=== PATIENT | female | born 1980 | race Caucasian/White ===

== ENCOUNTER 2018-04-21 14:11 | Outpatient (CLI) | payer MEDICAID, SELFPAY ==
[2018-04-23 21:43] LABS: Progesterone 2.6 ng/ml
== END 2018-04-21 14:31 ==
PROVIDERS: PCP Nurse Practitioner Family; Visit Provider Naturopath
DX: N92.1 Excessive and frequent menstruation with irregular cycle (principal)
CPT/HCPCS: 36415; 84144

== ENCOUNTER 2019-12-31 12:41 | Outpatient (REF) | payer MEDICAID, SELFPAY ==
--- NOTE | 2019-12-31 11:45 | PAPFT_PTH ---
PATIENT: Lily Mcmanus LOC: [facility] U#:[id number] AGE/SX: 39/F ROOM: RE12/31/[address]: Sandrita Thompson : 1980 BED: DIS: 12/31/2019 SPEC #: [id number] RECD: 01/01/20 12:50 STATUS: WON RENori #: [id number] OLGA: 12/31/19 11:[address]: Sandrita Zarate DEPT: [facility] Cytology RECD BY: Elke Jimenez ENTERED: 01/01/20 12:51 SP TYPE: PAPFT OTHR DR: Corinne Roberto Tissues: 1 - CX/ENDOCX FOR PAP SMEARS Procedures: PAP THIN PREP/UVM Screening HPV DNA PROBE Comments: [id number]
[2019-12-31 21:28] LABS: Hemoglobin A1C 4.9 % (3.8-5.6)
[2019-12-31 21:32] LABS: Calculated LDL 80 mg/dL (<100); Cholesterol 165 mg/dL (<200); HDL Cholesterol 68 mg/dL (40-60); Triglyceride 87 mg/dL (<150)
== END 2019-12-31 13:01 ==
LOC: NCHCN 12:41
PROVIDERS: PCP Nurse Practitioner Family; Visit Provider Nurse Practitioner Family
DX: Z13.220 Encounter for screening for lipoid disorders (principal); Z13.1 Encounter for screening for diabetes mellitus; R30.0 Dysuria; Z12.4 Encounter for screening for malignant neoplasm of cervix; Z11.51 Encounter for screening for human papillomavirus (HPV)
CPT/HCPCS: 80061; 88142; 83036; 87086; 87624

== ENCOUNTER 2020-02-08 10:16 | Outpatient (CLI) | payer MEDICAID, SELFPAY ==
[2020-02-10 13:08] LABS: Patient Race White; SARS-CoV-2 RNA Undetected (Undetected); SARS-CoV-2 Specimen Source Nasopharynx
== END 2020-02-08 10:36 ==
PROVIDERS: PCP Nurse Practitioner Family; Visit Provider Nurse Practitioner Family
DX: Z11.59 Encounter for screening for other viral diseases (principal)
CPT/HCPCS: U0003

== ENCOUNTER 2020-04-18 21:29 | Outpatient (REF) | payer MEDICAID, SELFPAY ==
[2020-04-22 22:16] LABS: COVID-19 RT-PCR Result NEGATIVE (Negative)
== END 2020-04-18 21:49 ==
LOC: NCHCN 21:29
PROVIDERS: PCP Nurse Practitioner Family; Visit Provider Nurse Practitioner Family
DX: Z20.828 Contact with and (suspected) exposure to other viral communicable diseases (principal); R53.83 Other fatigue
CPT/HCPCS: U0003

== ENCOUNTER 2020-12-03 02:25 | Outpatient (CLI) | payer MEDICAID, SELFPAY ==
--- NOTE | 2020-12-03 | DI.US_ITS ---
Exam(s) US BREAST LT COMPLETE MG MAMMO DIAGNOSTIC BI EXAM: MG MAMMO DIAGNOSTIC BI PLUS COMPLETE LEFT BREAST ULTRASOUND CLINICAL HISTORY: LT BREAST PAIN, CYSTIC BREASTS,N64.4. TECHNIQUE: BOTH CC AND MLO VIEWS OF BOTH BREASTS WERE PERFORMED. Obtained with 3D Tomosynthesistechn ique and utilizing computer aided detection (CAD). FOLLOWING THIS MAMMOGRAM COMPLETE LEFT BREAST ULTRASOUND WAS PERFORMED INCLUDING ALL 4 QUADRANTS W ELL THE RETROAREOLAR REGION AND LEFT AXILLA COMPARISON: NONE. This is a baseline diagnostic mammogram on this 40-year-old patient who feels left breast pain on and off, mostly at approximately 6 o'clock position. She does not feel a lump and rodrigues s not have nipple discharge. FINDINGS: MAMMOGRAM: Fibroglandular tissue is moderately dense, this decreasing the sensitivity mammogram for finding in u nderlying lesions. There are no obvious spiculated masses nor malignant-appearing microcalcification groups in either br east. There is no significant architectural distortion or skin thickening-traction. LEFT BREAST ULTRASOUND (COMPLETE): There are no focal ultrasound findings in all 4 quadrants nor in the retroareolar region. Scanning of the area of concern at 6 o'clock position in multiple planes and not reveal any significant findings . Scanning of the ipsilateral left axilla is negative for significant adenopathy. IMPRESSION: 1. No radiographic evidence of malignancy in either breast. 2. Negative complete left breast ultrasound Appropriate follow-up is repeat breast imaging in a few months time if her pain persists, earlier if clinically indicated. She presently denies a lump. The patient was informed of the findings and follow-up recommendations by myself prior to leaving the department today. BI-RADS Category 2 - Benign Findings Breast Density - Category C - Heterogeneously dense Breast density Category C or D implies that the patient has dense breast tissue. Dense breast tissue can make it harder to find cancer on a mammogram. Dense breast tissue is also associated with an incr eased risk of breast cancer. This information about the result of the mammogram report was provided to the patient to raise their awareness. Use this report when you speak with the patient about their risks for breast cancer, which includes their family history. At that time, you may recommend additional screening tests (Ultrasoun d or MRI) as these tests may add significant information. A negative radiographic report should not delay biopsy if a dominant or clinically suspicious mass is present. Up to ten percent of cancers are not identified on mammography. A negative report may reinforce clinical impression. Adenosis and dense breasts may obscure an underlying neoplasm. False positive reports average 6 to 10%. Patient will receive a letter notifying them of these results.
== END 2020-12-03 02:45 ==
PROVIDERS: PCP Nurse Practitioner Family; Visit Provider Nurse Practitioner Family
DX: N60.12 Diffuse cystic mastopathy of left breast (principal); R92.8 Other abnormal and inconclusive findings on diagnostic imaging of breast
CPT/HCPCS: 76642; 77062; 77066; G0279

== ENCOUNTER 2022-01-08 21:38 | Outpatient (REF) | payer MEDICAID, SELFPAY | END 2022-01-08 21:39 | disposition home or self-care (01) | LOC: NCHCN 21:38 | PROVIDERS: PCP Nurse Practitioner Family; Visit Provider Family Medicine | DX: R39.89 Other symptoms and signs involving the genitourinary system (principal); N89.8 Other specified noninflammatory disorders of vagina; L29.2 Pruritus vulvae | CPT/HCPCS: 87086; 87480; 87510; 87660 ==

== ENCOUNTER 2023-06-21 17:37 | Emergency (ER) | payer MEDICAID, SELFPAY ==
[2023-06-21 17:39] VITALS: BP 170/85; PULSE 88; RESP 18; TEMP 36.9; O2SAT 100
--- NOTE | 2023-06-21 17:49 | ED.GENADUL_ITS ---
HPI General Date/Time Provider Initiated Documentation: 06/21/23 17:49 . HPI Narrative: 42 year-old female presents to ED today by POV/ambulating with a chief complaint of lightning bolt scotoma in L eye for the past day- did injure this eye by poking it while removing contacts two days ago. Quality described as pain with leftward gaze in OS, no radiation to gross blurred vision. Severity is described as mild. Palliating factors include nothing specific attempted. Provoking factors include nothing specific. Events leading up to the incident/Associated Symptoms: Patient endorses FHx of glaucoma. Patient not anticoagulated. Related Data Home Medications Medication Instructions Recorded Confirmed dextroamphetamine-amphetamine 15 15 mg PO DAILY 11/04/22 06/21/23 mg tablet (Adderall) sertraline 25 mg tablet 25 mg PO DAILY 11/04/22 06/21/23 hydroxyzine HCl 25 mg tablet 25 mg PO BID 06/21/23 06/21/23 Allergies Allergy/AdvReac Type Severity Reaction Status Date / Time Penicillins Allergy Intermediate Hives Verified 06/21/23 17:46 Sulfa (Sulfonamide Allergy Intermediate Hives Verified 06/21/23 17:46 Antibiotics) General Stated Complaint: EyeProblem GRISEL: 3 Review of Systems All systems reviewed & are unremarkable except as noted in HPI and below Exam Narrative Exam Narrative: GENERAL APPEARANCE: Well-nourished, non-toxic, awake and alert, atraumatic, no acute distress. SKIN: Warm, pink, dry, intact, without rashes/lesions/ulcerations. HEAD: Normocephalic, atraumatic, normal hair distribution for gender/age. EYES: Pupils PERRLA, EOMs intact without nystagmus, pain with leftward gaze, normal conjunctiva, no exudates on lids/lashes, no hyphema Visual acuity: OD: 20/25, OS: 20/30, Bilat: 20/25 IOP OS: 16.5 Fluorescein exam shows small central punctate corneal abrasion OS Fundus not well visualized ENT: Nares patent, no circumoral cyanosis, no facial swelling NECK: Supple, trachea midline, painless cervical ROM. LUNGS/CHEST: Non-labored respirations, normal A/P diameter, symmetrical expansion, no chest wall deformity HEART (CV/PV): No peripheral edema, no JVD. ABDOMEN: Soft, non-distended, no guarding, no tenderness. MSK: Normal ROM, no swelling/deformity to bilateral UEs or LEs, moving all extremities without weakness, no cyanosis, spine midline without tenderness, normal curvature. NEURO: Mental Status AAOx4 - alert to person, place, time, events No facial droop, no forehead involvement. Motor: No focal weakness - strength 5/5 in bilateral UEs and LEs, proximal and distal, symmetric. Sensory: sensation intact to light touch globally. Gait normal: patient ambulated without ataxia into ED room. PSYCH: euthymic, cooperative, pleasant, appropriate speech Course Vital Signs Vital signs: Vital Signs Temperature 36.9 C 06/21/23 17:39 Pulse 88 06/21/23 17:39 Respiratory Rate 18 06/21/23 17:39 Blood Pressure 170/85 H 06/21/23 17:39 Pulse Oximetry 100 06/21/23 17:39 Temperature 36.9 C 06/21/23 17:39 Temperature Source Skin 06/21/23 17:39 Pulse 88 06/21/23 17:39 Respiratory Rate 18 06/21/23 17:39 Respiratory Effort Normal 06/21/23 17:45 Blood Pressure 170/85 H 06/21/23 17:39 Blood Pressure Position Sitting 06/21/23 17:39 Pulse Oximetry 100 06/21/23 17:39 Oxygen Delivery Method Room Air 06/21/23 17:39 Oxygen Flow Rate 0 06/21/23 17:39 Medical Decision Making This dictation utilizes [id number] dictation software and may contain unedited grammatical errors. 42 y/o F presents to ED today with a chief complaint of injured her eye 2 days ago manipulating contact lens, now having a scotoma, history of occular migraines but feels different. No severe eye pain or discharge, mild pain with leftward gaze. Patients' medical history: noncontributory. Family and social history: FHx of glaucoma, otherwise noncontributory. Pertinent exam findings / vital signs include EYES: Pupils PERRLA, EOMs intact without nystagmus, pain with leftward gaze, normal conjunctiva, no exudates on lids/lashes, no hyphema Visual acuity: OD: 20/25, OS: 20/30, Bilat: 20/25 IOP OS: 16.5 Fluorescein exam shows small central punctate corneal abrasion OS Fundus not well visualized. Differential / pathologies of concern include vitreous hemorrhage, retinal detachment, acute angle glaucoma, corneal abrasion, unlikely CRAO or CRVO. Diagnostic studies of: -Funduscopic exam, Rk-Pen exam, see above. Interventions of: -Ordered erythromycin for the patient further minor corneal abrasion, they left without discharge paperwork after I discussed my consult with [facility] with them. -Consulted with Piero Terry of [facility] Ophtho. ED Course/Assessment/Plan: 42-year-old female presents with a scotoma of the lightening bolts of her left eye, she did poke her eye significantly 2 days ago manipulating her contact lens, there is a punctate corneal abrasion of the left eye, her IOP is normal, v isual acuity intact, she has mild pain with leftward gaze in the left eye only. I did discuss with [facility] ophthalmology after performing informal ultrasound and finding no retinal detachment or significant vitreous hemorrhage, they state that she needs a dilated eye exam which she has arranged and should be eye care tomorrow, [facility] would also be happy to see the patient. I counseled the patient on the punctate corneal abrasion, she chose to leave without discharge paperwork or the erythromycin ointment I was going to provide but she did verbalize understanding of discharge and where and when to return for any acute emergent exacerbation of this problem. Findings not consistent with retinal detachment, CRAO, CRVO, acute angle glaucoma. Disposition of corneal abrasion, scotoma. Patient verbalized understanding of the plan and return to ED criteria and engaged in shared decision making. Medical Records Medical records reviewed: Yes I reviewed the patient's medical records. Quality:[facility] Health Related Social Needs: No Data to Display [facility] All Active Problems (Updated 06/21/23 @ 18:43 by ML Tran) Scotoma (Acute) Corneal abrasion (Acute) ADHD (Acute) PMDD (premenstrual dysphoric disorder) (Acute) Family History Paternal Grandmother Cancer breast Social History Smoking/Tobacco Use Status: Never Smoking risk assessment performed?: Yes Alcohol Intake: never Drug use: Occasionally Substance use type: marijuana Do you feel safe at home: Yes Do you feel safe in your relationship?: Yes History History 2 Para 2 Hx # Term Pregnancies 2 Multiple births Hx # Pregnancies Ectopic pregnancies AB induced Hx Number of Living Children 2 AB spontaneous Discharge Plan Disposition Patient Disposition: Home Condition: Stable Discharge Details Clinical Impression: Corneal abrasion, Scotoma Primary Care Provider: Corinne Roberto ED Provider: Riley Terry Home Meds and New Rx's Prescriptions: Continued dextroamphetamine-amphetamine [Adderall] 15 mg tablet 15 mg PO DAILY sertraline 25 mg tablet 25 mg PO DAILY hydroxyzine HCl 25 mg tablet 25 mg PO BID Patient Comments: TAKE ONE TABLET BY MOUTH TWICE A DAY Discharge Instructions Instructions: Erythromycin (Into the eye), Corneal Abrasion (ED), Visual Floaters (ED) Additional Instructions: You were seen in the emergency department for the visual floaters or lightening bolt scotoma in your left eye, this may be due to the minor trauma 2 days ago while manipulating her contact lens. There was a tiny corneal abrasion in the center of your left cornea, your intraocular pressure is normal, I did not see any retinal detachment or severe vitreous hemorrhage on ultrasound exam of your left eye. It is possible you have some minor vitreous hemorrhage ongoing that is causing your symptoms. I spoke with [facility] ophthalmology and they recommended dilated eye exam which you can have performed at your optometry appointment tomorrow, they would be happy to see you at the ophthalmology clinic at [facility] as well. Please present to a hospital with ophthalmology immediately if you experience any severe increase in eye pain or sudden loss of vision overnight. Use the provided erythromycin ointment 4 times per day for 5 days for your minor corneal abrasion. Referrals: [facility] [Outside]
[2023-06-21] MEDS: Tetracaine 0.5% 4 ML BTL (18:00)
[2023-06-21] MEDS: Fluorescein STRIPS 100/BOX 1 MG (18:00)
--- NOTE | 2023-06-21 19:06 | NUR.NOTE ---
Pt left without discharge paperwork, it will be mailed to pt address.
== END 2023-06-21 19:03 | disposition home or self-care (01) ==
PROVIDERS: Emergency Provider Physician Assistant; PCP Nurse Practitioner Family
DX: H18.822 Corneal disorder due to contact lens, left eye (principal); H53.452 Other localized visual field defect, left eye
CPT/HCPCS: 99283

== ENCOUNTER 2024-03-30 01:41 | Outpatient (CLI) | payer MEDICAID, SELFPAY ==
--- NOTE | 2024-03-30 15:26 | DI.MAMMO_ITS ---
Exam(s) MAMMO SCREENING EXAM: MAMMO SCREENING CLINICAL HISTORY: SCREENING, Z12.31. TECHNIQUE: Bilateral full field digital CC and MLO mammographic images were obtained with 3D tomosyn thesis and utilizing computer aided detection (CAD). COMPARISON: Prior outside baseline mammogram of November 2020 was reviewed. Prior outside left breast ultrasound performed November 2020 was also reviewed. FINDINGS: The fibroglandular tissue pattern is again noted be moderately dense No obvious new findings in left breast. In the right breast towards the upper outer quadrant there are a few small nodular densities noted on the mammogram 3D MLO view, these averaging 5 mm size and located approximately 8-9 cm in from the ni pple. Spot compression view and ultrasound recommended. There are no malignant-appearing microcalcification groups in this region nor elsewhere in either edison ast. There is no significant architectural distortion nor skin thickening-retraction. IMPRESSION: Dense bilateral fibroglandular tissue. Suggestion of multiple small right breast nodules in the uppe r outer quadrant. Spot compression MLO view and breast ultrasound recommended. BI-RADS Category 0 - Incomplete: Need additional imaging evaluation Breast Density - Category C - Heterogeneously dense Breast density Category C or D implies that the patient has dense breast tissue. Dense breast tissue can make it harder to find cancer on a mammogram. Dense breast tissue is also associated with an incr eased risk of breast cancer. This information about the result of the mammogram report was provided to the patient to raise their awareness. Use this report when you speak with the patient about their risks for breast cancer, which includes their family history. At that time, you may recommend additional screening tests (Ultrasoun d or MRI) as these tests may add significant information. A negative radiographic report should not delay biopsy if a dominant or clinically suspicious mass is present. Up to ten percent of cancers are not identified on mammography. A negative report may reinforce clinical impression. Adenosis and dense breasts may obscure an underlying neoplasm. False positive reports average 6 to 10%. Patient will receive a letter notifying them of these results.
== END 2024-03-30 02:01 ==
LOC: DI 01:41
PROVIDERS: PCP Nurse Practitioner Family; Visit Provider Nurse Practitioner Family
DX: Z12.31 Encounter for screening mammogram for malignant neoplasm of breast (principal); R92.323 Mammographic fibroglandular density, bilateral breasts; R92.333 Mammographic heterogeneous density, bilateral breasts
CPT/HCPCS: 77063; 77067

== ENCOUNTER 2024-04-06 00:13 | Emergency (ER) | payer MEDICAID, SELFPAY ==
[2024-04-06 00:17] VITALS: BP 154/97; PULSE 87; RESP 16; TEMP 37; O2SAT 100
--- NOTE | 2024-04-06 00:28 | ED.GENADUL_ITS ---
Discharge Plan Disposition Patient Disposition: Home Condition: Good Discharge Details Clinical Impression: Medication adverse effect Primary Care Provider: Corinne Roberto ED Provider: Riley Sexton Home Meds and New Rx's Prescriptions: Discontinued lamotrigine 25 mg tablet 25 mg PO DAILY Patient Comments: TAKE ONE TABLET BY MOUTH EVERY DAY AT BEDTIME FOR 14 DAYS THEN INCREASE TO 2 TABLETS ONCE DAILY AT BEDTIME No Action dextroamphetamine-amphetamine [Adderall] 15 mg tablet 15 mg PO DAILY sertraline 25 mg tablet 25 mg PO DAILY hydroxyzine HCl 25 mg tablet 25 mg PO BID Patient Comments: TAKE ONE TABLET BY MOUTH TWICE A DAY Discharge Instructions Instructions: Adverse Drug Reactions, Adult (DC) Additional Instructions: At this time your rash is likely caused by the lamotrigine. Please stop taking the lamotrigine. Please continue to take 25 mg of Benadryl every 6 hours for the next 2 days. Please take the loratadine when you get home. If your rash returns or is worsened, please return immediately for reassessment as this may necessitate steroid use. If you notice any worsening of your symptoms, or any new symptoms such as vomiting, diarrhea, fever, chills, shortness of breath, chest pain, numbness, weakness, or fainting , please return immediately to the emergency department for reevaluation. Please follow up with your primary care provider as soon as possible for reassessment and reevaluation. As always, it was a pleasure participating in your medical care today. Referrals: Corinne Roberto [Primary Care Provider] - Discharge Data Discharge Date/Time-TO BE ENTERED AT DEPARTURE: 04/06/24 00:33 HPI General Date/Time Provider Initiated Documentation: 04/06/24 00:28 . HPI Narrative: 43-year-old female with past medical history of ADHD, premenstrual dysphoric disorder, mild depression, who presents today for evaluation of a rash on her right face. Patient was recently started on lamotrigine 48 hours ago. First dose was yesterday evening. She noticed no atypical symptoms at this time. She was started on it for mood management, not seizure management. However today she noticed development of rash on the right side of her face, tingling in her cheek, mild irritation there. She denies any new lotions, trauma, or new dietary components. It is Thanksgiving, but she did not eat anything new or atypical. She took her second dose of lamotrigine tonight. She did take a Benadryl and this notably improved the rash. However because of the presence of the rash she came in for further assessment. She denies any other complaints at this time. She denies any burning in her tongue, any mucous membrane irritation, any dysuria or vaginal irritation. She denies any rash anywhere else. She denies any fever or chills. No other complaints Related Data Home Medications ?Medication ?Instructions ?Recorded ?Confirmed dextroamphetamine-amphetamine 15 15 mg PO DAILY 11/04/22 04/06/24 mg tablet (Adderall) sertraline 25 mg tablet 25 mg PO DAILY 11/04/22 04/06/24 hydroxyzine HCl 25 mg tablet 25 mg PO BID 06/21/23 04/06/24 Allergies Allergy/AdvReac Type Severity Reaction Status Date / Time Penicillins Allergy Intermediate Hives Verified 04/06/24 00:26 Sulfa (Sulfonamide Allergy Intermediate Hives Verified 04/06/24 00:26 Antibiotics) lamotrigine Allergy Hives Verified 04/06/24 00:29 General Stated Complaint: RashLesion GRISEL: 5 Review of Systems All systems reviewed & are unremarkable except as noted in HPI and below Exam Narrative Exam Narrative: 1.Const: Well-nourished, Well-developed, appearing stated age 2.Eyes: PERRL, no conjunctival injection, and symmetrical lids. 3.ENT: Atraumatic external nose and ears. Moist MM. Neck: Symmetric, trachea midline, No thyromegaly. 4.CVS: +S1/S2, Peripheral pulses 2+ and equal in all extremities. Brisk capillary refill in all extremities. 5.RESP: Unlabored respiratory effort. Clear to auscultation bilaterally. No wheezes rales or rhonchi 6.GI: Soft, Nontender/Nondistended, No hepatosplenomegaly. No guarding or rebound. 7.MSK: Normocephalic/Atraumatic, Extremities w/o deformity or ttp No cyanosis or clubbing, Normal movement of all extremities 8.Skin: Warm, Dry. No rashes or lesions. Negative Nikolsky sign. No large vesicles or bulla. No palpable purpura. No oral lesions. No mucosal lesions. No evidence of severe cellulitis. No evidence of vaccine preventable rash. 9.Neuro: field sales executive II-XII grossly intact. Sensation grossly intact, no focal neurologic deficits. 10.Psych: (AAO) x3. Appropriate mood and affect Course Vital Signs Vital signs: Vital Signs Temperature 37 C 04/06/24 00:17 Pulse 87 04/06/24 00:17 Respiratory Rate 16 04/06/24 00:17 Blood Pressure 154/97 H 04/06/24 00:17 Pulse Oximetry 100 04/06/24 00:17 Temperature 37 C 04/06/24 00:17 Temperature Source Temporal Artery Scan 04/06/24 00:17 Pulse 87 04/06/24 00:17 Respiratory Rate 16 04/06/24 00:17 Blood Pressure 154/97 H 04/06/24 00:17 Blood Pressure Position Sitting 04/06/24 00:17 Pulse Oximetry 100 04/06/24 00:17 Oxygen Delivery Method Room Air 04/06/24 00:17 Oxygen Flow Rate 0 04/06/24 00:17 Pain Level 0 04/06/24 00:17 Medical Decision Making 43-year-old female with past medical history of ADHD, premenstrual dysphoric disorder, mild depression, who presents today for evaluation of a rash on her right face. Patient was recently started on lamotrigine 48 hours ago. First dose was yesterday evening. She noticed no atypical symptoms at this time. She was started on it for mood management, not seizure management. However today she noticed development of rash on the right side of her face, t ingling in her cheek, mild irritation there. She denies any new lotions, trauma, or new dietary components. It is Thanksgiving, but she did not eat anything new or atypical. She took her second dose of lamotrigine tonight. She did take a Benadryl and this notably improved the rash. However because of the presence of the rash she came in for further assessment. She denies any other complaints at this time. She denies any burning in her tongue, any mucous membrane irritation, any dysuria or vaginal irritation. She denies any rash anywhere else. She denies any fever or chills. No other complaints Exam demonstrates no evidence of rash whatsoever at this time or any rash of significance on the right cheek. However the patient does have a picture which did show a notable erythematous rash on the right cheek, an area of slight central clearing. Rash is certainly concerning for a reaction component rash from the lamotrigine, no current clinical evidence of staph scalded skin syndr ome, erythema multiforme, erythema migrans, toxic epidermal necrolysis, Schaefer- Ye syndrome, Kawasaki-like rash, meningococcemia, pemphigus vulgaris, or necrotizing fasciitis. Because of the hyperreactivity known with lamotrigine, and the patient's symptomatology and reaction I do feel it is best to stop the lamotrigine at this time. She does have a penicillin and sulfa allergy but has not had any recent antibiotics. We will recommend cessation of this, we will give a dose of loratadine for home use, will recommend continue 25 mg of Benadryl every 6 hours. Discussed red flags for which to return. With no other evidence of life-threatening etiology at this time, I do feel this patient is safe for discharge with close follow-up with her PCP on an outpatient basis. I have extensively reviewed the treatment plan and discharge instructions with the patient. I have addressed all patient concerns at this time. The patient was made aware of what symptoms to monitor for that would warrant a return to the emergency department. Discussed the plan with the patient, they demonstrate verbal understanding and agreement with our assessment and plan at this time. The documentation in this chart was dictated using [employer] dictation software. Please excuse any dictation errors. Quality:SDOH Health Related Social Needs: No Data to Display PFSH All Active Problems Medication adverse effect (Acute) ADHD (Acute) PMDD (premenstrual dysphoric disorder) (Acute) Family History Paternal Grandmother Cancer breast Social History Smoking/Tobacco Use Status: Never Smoking risk assessment performed?: Yes Alcohol Intake: never Drug use: Occasionally Substance use type: marijuana Do you feel safe at home: Yes Do you feel safe in your relationship?: Yes History History 2 Para 2 Hx # Term Pregnancies 2 Multiple births Hx # Pregnancies Ectopic pregnancies AB induced Hx Number of Living Children 2 AB spontaneous
[2024-04-06] MEDS: Loratidine 10 MG TAB PO (00:33)
== END 2024-04-06 00:33 | disposition home or self-care (01) ==
LOC: ER 00:36
PROVIDERS: Emergency Provider Student in an Organized Health Care Education/Training Program; PCP Nurse Practitioner Family
DX: L27.0 Generalized skin eruption due to drugs and medicaments taken internally (principal); T42.6X5A Adverse effect of other antiepileptic and sedative-hypnotic drugs, initial encounter; Y92.89 Other specified places as the place of occurrence of the external cause
CPT/HCPCS: 99283

== ENCOUNTER 2024-04-11 01:31 | Outpatient (CLI) | payer MEDICAID, SELFPAY ==
--- NOTE | 2024-04-11 | DI.MAMMO_ITS ---
Exam(s) MG MAMMO SCREEN CALL BACK UNI US BREAST RT LIMITED EXAM: MG MAMMO SCREEN CALL BACK UNI CLINICAL HISTORY: Multiple small rt breast nodules in UOQ, averaging 5 mm, 8-9 cm from nipple. TECHNIQUE: Craniocaudal and mediolateral oblique spot compression digital Mammography views of the right breast with Tomosynthesis and right breast ultrasound. COMPARISON: MG,US MG MAMMO DIAGNOSTIC BI from 12/03/2020 US US BREAST LT COMPLETE from 12/03/2020 MG MG MAMMO SCREENING from 03/30/2024 US US BREAST RT LIMITED from 04/11/2024 FINDINGS: Mammography/Tomosynthesis: Masses: None seen. Architectural Distortion: None seen. Microcalcifictions: No suspicious pleomorphic-type are seen. Skin Thickening/Nipple Retraction: None. Right breast US: Echotexture: Normal appearance of the glandular tissue. Shadowing: No suspicious foci. Cyst: 4 millimeter cyst 11 o'clock position 7 cm from the nipple. Solid lesions: None seen. Ductal dilation: None. IMPRESSION: 1. No evidence of malignancy is noted. 2. Unless there is more urgent need, follow-up screening mammography is recommended, as per [employer] guidelines. 3. The findings were discussed with the patient on the date of the examination. BI-RADS Category 2 - Benign Findings Breast Density - Category C - Heterogeneously dense A mammogram that demonstrates density of C or D indicates the patient's breast tissue is dense. Dense breast tissue is very common and is not abnormal, but dense breast tissue can make it harder to find cancer on a mammogram. Also, dense breast tissue may increase their breast cancer risk. This informa tion about the result of the mammogram report was provided to the patient to raise their awareness. U se this report when you speak with the patient about their risks for breast cancer, which includes th eir family history. At that time, you may recommend for more screening tests (Ultrasound or MRI) as t hey might be useful based on their risk. A negative radiographic report should not delay biopsy if a dominant or clinically suspicious mass is present. Up to ten percent of cancers are not identified on mammography. A negative report may reinforce clinical impression. Adenosis and dense breasts may obscure an underlying neoplasm. False positive reports average 6 to 10%. Patient will receive a letter notifying them of these results.
== END 2024-04-11 01:51 ==
LOC: DI 01:32
PROVIDERS: PCP Nurse Practitioner Family; Visit Provider Nurse Practitioner Family
DX: Z12.31 Encounter for screening mammogram for malignant neoplasm of breast (principal); R92.8 Other abnormal and inconclusive findings on diagnostic imaging of breast
CPT/HCPCS: 76642; 77063; 77067

== ENCOUNTER 2024-07-06 00:14 | Outpatient (CLI) | payer MEDICAID, SELFPAY ==
--- NOTE | 2024-07-06 | DI.US_ITS ---
Exam(s) US PELVIS TRANSVAGINAL EXAM: US PELVIS TRANSVAGINAL CLINICAL HISTORY: Abnormal uterine bleeding, N93.9 TECHNIQUE: Transabdominal and transvaginal imaging was performed using standard protocol. COMPARISON: No exams were available for comparison FINDINGS: UTERUS: Anteverted. 7.8 x 4.1 x 5 point cm Endometrium: 8 mm Myometrium: Unremarkable. Cervix: Unremarkable. OVARIES: Right: Cyst or mass: None. Left: Cyst or mass: None. DOPPLER: Color: Symmetric and uniform flow to both ovaries. No hyperemia. CUL-DE-SAC: Free fluid: None. IMPRESSION: 1. Normal-appearing uterus with endometrial stripe within normal limits. 2. Unremarkable bilateral ovaries. DATA REPOSITORY:
== END 2024-07-06 00:34 ==
LOC: DI 00:14
PROVIDERS: PCP Nurse Practitioner Family; Visit Provider Physician Assistant
DX: N93.9 Abnormal uterine and vaginal bleeding, unspecified (principal)
CPT/HCPCS: 76830; 76856

== ENCOUNTER 2024-11-20 16:44 | Outpatient (REF) | payer MEDICAID, SELFPAY ==
[2024-11-20 16:44] LABS: Calculated LDL 61 mg/dL (<100); Cholesterol 133 mg/dL (<200); HDL Cholesterol 61 mg/dL (>or=50); Triglyceride 56 mg/dL (<150)
== END 2024-11-20 16:45 | disposition home or self-care (01) ==
LOC: NCHCN 16:44
PROVIDERS: PCP Nurse Practitioner Family; Visit Provider Nurse Practitioner Family
DX: Z13.220 Encounter for screening for lipoid disorders (principal)
CPT/HCPCS: 80061

== ENCOUNTER 2025-01-03 18:54 | Emergency (ER) | payer MEDICAID, SELFPAY ==
[2025-01-03] VITALS (9 sets, daily range): BP systolic 120–154; BP diastolic 74–102; PULSE 69–97; RESP 13–22; TEMP 36.6; O2SAT 96–100
--- NOTE | 2025-01-03 19:15 | DI.RAD_ITS ---
Exam(s) XR PORTABLE CHEST AP EXAM: XR PORTABLE CHEST AP CLINICAL HISTORY: Chest pain. TECHNIQUE: 2D digital imaging was performed. COMPARISON: No exams were available for comparison FINDINGS: Single AP portable view. Heart size is upper normal. The mediastinum is not widened. Lungs are clear. No infiltrates nor obvious pleural effusions. IMPRESSION: No acute pulmonary findings on this single AP portable view of the chest. DATA REPOSITORY: RADIATION DOSE DELIVERED:
--- NOTE | 2025-01-03 19:15 | RT.EKG_ITS ---
APPROVED REPORT Exam: Resting ECG Reason for Exam: Chest pain Patient Location: E HR:78 bpm ECG Measurements Heart Rate 78 AXIS CA 139 P 58 QRSd 139 QRS -42 QT 409 T 69 QTc 465 Conclusion Sinus rhythm...normal P axis, V-rate 60- 99 Left bundle branch block...QRSd>120, broad/notched R ST elevation secondary to IVCD...Multiple VCG criteria No STEMI
--- NOTE | 2025-01-03 19:51 | W.ED.GENAD ---
Discharge Plan Disposition Patient Disposition: Home Discharge Details Clinical Impression: Chemical exposure, LBBB (left bundle branch block) Primary Care Provider: Sandrita Zarate ED Provider: Cristofer Mason Home Meds and New Rx's Prescriptions: Continued dextroamphetamine-amphetamine [Adderall] 15 mg tablet 15 mg PO DAILY hydroxyzine HCl 25 mg tablet 25 mg PO BID Patient Comments: TAKE ONE TABLET BY MOUTH TWICE A DAY Discharge Instructions Instructions: Heart Block, Adult (DC) Additional Instructions: Please follow-up with your primary care provider regarding your visit to the emergency department today. Be sure to discuss results of all test performed here today to include radiology, and laboratory testing as well as results for any pending cultures. Should your symptoms worsen, or if you develop new concerning symptoms, please return immediately emergency department for further evaluation. HPI General Date/Time Provider Initiated Documentation: 01/03/25 19:11. HPI Narrative: MDM/Narrative: Initial Assessment: Pyrethrin spray exposure with symptoms of chest burning, coughing, dizziness, and anxiety. Used multiple bottles over a couple of hours, inhaled significant amounts. Vitals stable. Differential Diagnosis: - Pyrethrin toxicity: Symptoms consistent. Plan: Chest x-ray, EKG, contact poison control, supportive care. - Anxiety: Likely secondary to exposure. Plan: Monitor, medication for severe anxiety if needed. - Respiratory irritation: Due to inhalation. Plan: Breathing treatments if respiratory issues arise. ED Course: Ordered chest x-ray and EKG. Contacted poison control for guidance, recommend chest x-ray and observation until patient feels better. Monitored patient. 2148 Results shared with and explained to the patient was agreeable to plan for discharge as she is now feeling better. Final Assessment: Chest x-ray and EKG ordered. Poison control contacted for monitoring guidance. Supportive care planned for anxiety and respiratory issues. Clinical Impression: - Pyrethrin toxicity - Respiratory irritation Disposition: Discharge: Home. Stable vitals, supportive care provided. Patient Education: Discussed effects of pyrethrin exposure, supportive care measures, and return precautions. This document was created with assistance from [employer] The patient consented to its use. Head is abraded towards HPI: The patient, with known allergies to penicillin and sulfa drugs, presents following exposure to pyrethrin spray. The exposure occurred outdoors despite the use of an N95 mask. Windy conditions likely facilitated inhalation of the pyrethrin, resulting in persistent cough, chest burning, anxiety, dizziness, and pulmonary discomfort. The patient reports no other chemical exposures or ingestion. The exposure involved the use of four 24-ounce bottles and three 18-ounce sprays over a period of several hours. Precautions taken included wearing masks, sunglasses, gloves, and securing hair. The patient continues to experience chest burning and anxiety. ROS: Negative besides as mentioned above Exam: Vital signs: Reviewed. General Appearance: No acute distress. HEENT: NCAT, EOMI, not icteric. External ears normal. No rhinorrhea. Moist mucous membranes. Neck: Supple, full range of motion, no observable masses, No meningeal sign. Respiratory: No distress, reports coughing and chest burning. Cardiovascular: Vitals normal. Gastrointestinal: Soft, nondistended, No rebound tenderness. Back: No midline tenderness to palpation or palpable step-offs of the C/T/L spine. Skin: Warm and dry, no rash. Neurological: Reports anxiety. Psychiatric: Reports anxiety. Rhythm: NSR Rate: 78 bpm Isabel: Normal axis Intervals: Normal intervals Other findings: No acute ST segment or T wave changes to suggest acute ischemia, left bundle branch block, no prior available for comparison. Radiology: Chest x-ray: No acute findings as read by me Related Data Home Medications ?Medication ?Instructions ?Recorded ?Confirmed dextroamphetamine-amphetamine 15 15 mg PO DAILY 11/04/22 01/03/25 mg tablet (Adderall) hydroxyzine HCl 25 mg tablet 25 mg PO BID 06/21/23 01/03/25 Allergies Allergy/AdvReac Type Severity Reaction Status Date / Time Penicillins Allergy Intermediate Hives Verified 01/03/25 19:01 Sulfa (Sulfonamide Allergy Intermediate Hives Verified 01/03/25 19:01 Antibiotics) lamotrigine Allergy Hives Verified 01/03/25 19:01 General Stated Complaint: ChemExpose GRISEL: 3 Course Vital Signs Vital signs: Vital Signs Temperature 36.6 C 01/03/25 18:57 Pulse 97 H 01/03/25 18:57 Respiratory Rate 16 08/28/25 18:57 Blood Pressure 154/92 H 01/03/25 18:57 Pulse Oximetry 100 01/03/25 18:57 Temperature 36.6 C 01/03/25 18:57 Pulse 91 H 01/03/25 19:16 Pulse 92 H 01/03/25 19:16 Respiratory Rate 17 01/03/25 19:16 Respiratory Effort Normal 01/03/25 19:13 Respiratory Depth Normal 01/03/25 19:13 Respiratory Pattern Normal 01/03/25 19:13 Blood Pressure 144/100 H 01/03/25 19:16 Blood Pressure Mean 114 01/03/25 19:16 Pulse Oximetry 98 01/03/25 19:16 Pain Level 0 01/03/25 18:57 PFSH All Active Problems (Updated 01/03/25 @ 21:52 by Cristofer Mason MD) LBBB (left bundle branch block) (Acute) Chemical exposure (Acute) ADHD (Acute) PMDD (premenstrual dysphoric disorder) (Acute) Family History Paternal Grandmother Cancer breast Social History Smoking/Tobacco Use Status: Never Smoking risk assessment performed?: Yes Alcohol Intake: never Drug use: Occasionally Substance use type: marijuana Do you feel safe at home: Yes Do you feel safe in your relationship?: Yes History History 2 Para 2 Hx # Term Pregnancies 2 Multiple births Hx # Pregnancies Ectopic pregnancies AB induced Hx Number of Living Children 2 AB spontaneous
--- NOTE | 2025-01-03 20:34 | DI.VRAD_ITS ---
PROCEDURE INFORMATION: Exam: XR Chest Exam date and time: 01/03/2025 7:42 PM Age: 44 years old Clinical indication: Pain; Chest pressure TECHNIQUE: Imaging protocol: Radiologic exam of the chest. Views: 1 view. COMPARISON: No relevant prior studies available. FINDINGS: Lungs: No evidence of consolidation. There is increase in the bilateral lung maciel, which may be secondary to maximal lung inspiration or possibly emphysema. Pleural spaces: Unremarkable. No pleural effusion. No pneumothorax. Heart/Mediastinum: Unremarkable. No cardiomegaly. Bones/joints: Unremarkable. IMPRESSION: No evidence of significant consolidation. Dictated and Authenticated by: Rhiannon Sweet MD. Orderin Isabella Cleveland MD
== END 2025-01-03 22:12 | disposition home or self-care (01) ==
PROVIDERS: Emergency Provider General Practice; PCP Nurse Practitioner Family
DX: I44.7 Left bundle-branch block, unspecified (principal); Z77.098 Contact with and (suspected) exposure to other hazardous, chiefly nonmedicinal, chemicals
CPT/HCPCS: 93005; 99283; 71045; 93010